=== PATIENT | female | born 1965 | race Caucasian/White ===

== ENCOUNTER 2023-05-18 15:19 | Emergency (ER) | payer OTHER, SELFPAY ==
[2023-05-18 15:21] VITALS: BP 150/97; BMI 36.2
--- NOTE | 2023-05-18 16:08 | ED.GENMED ---
History of Present Illness
General
Chief Complaint: Extremity Pain (non-traumatic)
Source: patient
Time Seen by Provider: 05/18/23 15:57
Travel History
Have you had any contact with someone who has COVID-19?: No
Do you have any symptoms of coronavirus? Fever > 100 degrees, chills, cough, shortness of breath, sore throat, loss of taste or smell, muscle aches, or headache?: No
History of Present Illness
History of Present Illness:
This patient is a 58-year-old female presents emergency department complaints of right knee swelling and discomfort for the past 24 hours. She denies any specific injury or fall. She was very active yesterday, doing errands chores such as laundry
etc. Because of the swelling, patient notes pain with bending her knee fully. She states that she had a similar event a long time ago, presented to an outside emergency department, and had arthrocentesis with cortisone injection which helped her.
She denies fever, chills, drainage, numbness, tingling, weakness, or other complaints.
Past History
Past History
ED Past Medical History: None
Social History
Tobacco: Non-smoker
Drug: None
Personal:
Living: with family
Employment: Employed
Phy Exam
Physical Exam
Physical Exam:
GENERAL: Alert , in no apparent distress
EYE: pupils equal and round
NECK: Supple, no significant adenopathy.
ENT: o/p clr, mmm.
CARDIAC: Regular rate and rhythm .
LUNGS: Clear breath sounds bilaterally, no acute respiratory distress, no wheezes/rales/rhonchi
ABDOMEN: Soft, without focal tenderness, no r/g
NEUROLOGICAL: Alert and oriented, no focal neuro deficits
SKIN: Warm and dry, skin intact.
MUSCULOSKELETAL: R knee with sl limited rom due to pain, min ttp med asp tib, no joint laxity, suspect suprapatellar bursa swelling and joint effusion, well perfused. No redness, warmth.
PSYCH: Normal and appropriate interaction.
Course
Orders/Labs/Results
Orders:
Orders
05/18/23 16:08
Knee, Right 4 or More Views [CR Knee- Right 4 Or More View*] Urgent
Comment:
Reason For Exam: swelling and pain
05/18/23 17:54
Triamcinolone Acetonide [Kenalog-10] 15 mg INTRAARTIC NOW STA
05/18/23 18:28
Body Fluid Cell Count Urgent
What is the Body Fluid: joint
Date Specimen was Collected: 05/18/23
Time Specimen was Collected: 18:26
Comment: with DIFF
Body Fluid Crystals Urgent
What is the Body Fluid: joint
Date Specimen was Collected: 05/18/23
Time Specimen was Collected: 18:26
Lyme PCR, DNA [S] Urgent
Fluid Culture with Gram Stain Urgent
STEVEN Source: Joint Fluid
Specimen Description:
Date Specimen was Collected: 05/18/23
Time Specimen was Collected: 18:26
Vital Signs
Initial and Last Documented VS:
Initial Vital Signs
Temp Pulse Resp BP Pulse Ox
98.5 F 71 16 150/97 99
05/18/23 15:21 05/18/23 15:21 05/18/23 15:21 05/18/23 15:21 05/18/23 15:21
Last Documented Vital Signs
Temp Pulse Resp BP Pulse Ox
98.5 F 76 18 146/71 99
05/18/23 15:21 05/18/23 18:55 05/18/23 18:55 05/18/23 18:55 05/18/23 18:55
Procedures
Incision/Drainage/Joint Aspiration
Right Knee:
Anethesia: ethyl chloride and 1% Lidocaine with Epi
Preparation: cleaned with Betadine
Type of procedure: aspiration and injection (KETALOG 3 ML)
Nature of site: other
Fluid description: straw colored
Additional information:
50 ML OF FLUID DRAINED, 3 ML OF KETALOG INJECTED, PT TOLERATED PROCEDURE WELL.
*Critical Care Note
Total Time (30-74mins, 75-104mins- exclusive of procedures): Not Applicable
Update Note
Update Note:
Patient presents to the Emergency Department with ____right knee swelling
Number and Complexity of Problems Addressed at the Encounter
� Chronic conditions affecting care:
� Acute Exacerbation and/or Progression of Chronic Illness:
� Differential Diagnosis includes: But not limited to septic arthritis, gout, reactive arthritis, inflammatory arthritis, etc.
Amount and/or Complexity of Data to be Reviewed and Analyzed
� I performed an independent evaluation of and my interpretation is:
EKG:
CT:
Xrays: Reviewed with radiology as well as on my own, multipartite patella, moderate to large joint effusion, no acute fracture
Laboratory Studies:
Other:
� Review of other/old records reveals:
� Clinical information was obtained by an independent historian:
� Prescriptions/Medications Considered but not given:
� Further testing considered but not performed:
Risk of Complications and/or Morbidity or Mortality of Patient Management
� Social determinants of health affecting care:
� Discussion with other providers (PCP, Hospitalists, Consultants, etc):
� Escalation of care including admission/observation vs risk of discharge considered: 5:55 PM risk and benefits of joint aspiration and steroid injection discussed with patient, consent signed. Procedure performed without
difficulty, fluid sent off for analysis. Clinical picture extremely consistent with inflammatory/reactive fluid, I do not suspect infection and therefore patient will be discharged home before analysis complete given low suspicion for infection.
Discussed with patient portance of follow-up and reasons return to the ER.
ED Attending Note
-
Portions of this chart may have been created with voice recognition software.� Occasional wrong word or��sound alike� substitutions may have occurred due to the inherent limitations of voice recognition software.
Discharge Plan
Departure
Patient Disposition: Home (Routine Discharge)
Date of Disposition: 05/18/23
Time of Disposition: 18:25
Patient with high blood pressure during this ER visit?: Yes
Condition: Good
Discharge Problem:
Effusion of knee
Instructions: Knee Pain ED, BLOOD PRESSURE
Referrals:
Rajat Ozuna MD [Active] - Next open appointment
Brenton Michelle MD [Family Provider] -
Activity Restrictions/Additional Instructions:
IF YOU DEVELOP INCREASED/NEW SWELLING, ANY FEVER, CHILLS, SWEATS, REDNESS/WARMTH, INCREASING/NEW PAIN, OR OTHER WORRISOME SIGNS, GO TO THE ER IMMEDIATELY!
Interventions
Interventions:
*Risk Screen - Suicide Last Done: 05/18/23 15:21
*General Assessment Last Done: 05/18/23 15:47
*Neglect/Abuse Screening Last Done: 05/18/23 15:21
ED- Fall Risk Assessment Last Done: 05/18/23 15:47
*ED COVID-19 Vaccine History Last Done: 05/18/23 15:21
*Nursing Disposition Last Done: 05/18/23 18:57
ED-Musculoskeletal Assessment Last Done: 05/18/23 15:47
Discharge Date and Time
Discharge Date/Time: 05/18/23 18:57
[2023-05-18 18:55] VITALS: BP 146/71
[2023-05-18 19:28] LABS: Body Fluid WBC 612 /CUMM
[2023-05-18 19:29] LABS: Body Fluid Mononuclear 64 %; Body Fluid Polymorphonuclear 36 %
[2023-05-18 19:35] LABS: Body Fluid Second Tech JK
[2023-05-22 04:44] LABS: Lyme Disease DNA by PCR Not Detected; Lyme Source Synovial fluid
== END 2023-05-18 18:57 | disposition home or self-care (01) ==
LOC: EMR 15:19
PROVIDERS: EMERGENCY PHYSICIAN Emergency Medicine; FAMILY PHYSICIAN Physical Medicine & Rehabilitation
DX: M25.461 Effusion, right knee (principal); R03.0 Elevated blood-pressure reading, without diagnosis of hypertension
CPT/HCPCS: 99284; 20610; 73564; 87015; 87070; 87205; 87476; 89051; 89060